=== PATIENT | female | born 1980 | race Two or more races ===

== ENCOUNTER → 2024-07-28 | Outpatient (BNVA) | payer MEDICAID, SELFPAY | END | disposition home or self-care (01) | PROVIDERS: PCP Nurse Practitioner Family; Referring Provider Nurse Practitioner Family; Visit Provider Urology | DX: N35.92 Unspecified urethral stricture, female (principal); D41.4 Neoplasm of uncertain behavior of bladder; E11.9 Type 2 diabetes mellitus without complications; Z79.4 Long term (current) use of insulin; C64.1 Malignant neoplasm of right kidney, except renal pelvis; Z87.440 Personal history of urinary (tract) infections | CPT/HCPCS: 52214; 81003; 96372; 99212; A4217; A4649; C1894; J3260; A9270; G0463 ==

== ENCOUNTER → 2024-08-28 | Outpatient (CLI) | payer MEDICAID, SELFPAY ==
--- NOTE | 2024-08-28 12:30 | XR_ITS ---
Examination: CT abdomen with intravenous contrast CT pelvis with intravenous contrast 2-D coronal reconstructions 2-D sagittal reconstructions Date and time of exam:August 28, 2024 1335 hours Comparison March 05, 2023 INDICATIONS: Diagnosis malignant neoplasm right kidney 2016 restaging CTDI: vol (mGy) 12.4 DLP: (mGycm) 623 Technique: Multiple axial sections of the abdomen and pelvis have been obtained. 64 slice high-resolution scanner used. 3 mm axial sections have been obtained, post intravenous injection 60 cc [id number] 2-D sagittal, coronal reconstructions obtained. Low dose protocols were performed. One or more of the following dose reduction techniques were used; automated exposure control, adjustment of the mA and/or KV according to patient size, use of iterative reconstruction technique. Findings: No focal liver or splenic lesions Absent gallbladder No pancreatic mass 12 mm indeterminate left adrenal nodule, stable compared with March 05, 2023 Partial right nephrectomy No solid enhancing renal mass lesion No abdominal or pelvic lymphadenopathy Aorta normal size Normal appendix Anteverted uterus No adnexal mass No bladder mass or bladder calculi The osseous structures are demineralized IMPRESSION: No interval metastatic disease or recurrent renal tumor
== END | disposition home or self-care (01) ==
PROVIDERS: PCP Urology; Referring Provider Urology; Visit Provider Urology
DX: C64.1 Malignant neoplasm of right kidney, except renal pelvis (principal); N39.0 Urinary tract infection, site not specified
CPT/HCPCS: 74177; A4649; Q9967

== ENCOUNTER → 2024-11-06 | Outpatient (BNVA) | payer MEDICAID, SELFPAY | END | disposition home or self-care (01) | PROVIDERS: PCP Nurse Practitioner Family; Referring Provider Nurse Practitioner Family; Visit Provider Urology | DX: Z53.8 Procedure and treatment not carried out for other reasons (principal); E11.9 Type 2 diabetes mellitus without complications | CPT/HCPCS: 99212; G0463 ==

== ENCOUNTER → 2025-01-16 | Outpatient (BNVA) | payer MEDICAID, SELFPAY | END | disposition home or self-care (01) | PROVIDERS: PCP Nurse Practitioner Family; Referring Provider Nurse Practitioner Family; Visit Provider Urology | DX: N39.0 Urinary tract infection, site not specified (principal); Z85.528 Personal history of other malignant neoplasm of kidney; Z90.5 Acquired absence of kidney; E11.9 Type 2 diabetes mellitus without complications; E66.9 Obesity, unspecified; Z68.29 Body mass index [BMI] 29.0-29.9, adult | CPT/HCPCS: 81003; 99212; G0463 ==

== ENCOUNTER → 2025-03-20 | Outpatient (CLI) | payer MEDICAID, SELFPAY ==
--- NOTE | 2025-03-20 11:00 | XR_ITS ---
Examination: CT abdomen with intravenous contrast CT pelvis with intravenous contrast 2-D coronal reconstructions 2-D sagittal reconstructions Date and time of exam:March 20, 2025 1121 hours Comparison August 28, 2024 INDICATIONS: History malignant neoplasm right kidney 2016, post partial right nephrectomy restaging. CTDI: vol (mGy) 13.9 DLP: (mGycm) 710 Technique: Multiple axial sections of the abdomen and pelvis have been obtained. 64 slice high-resolution scanner used. 3 mm axial sections have been obtained, post intravenous injection 60 cc [id number] 2-D sagittal, coronal reconstructions obtained. Low dose protocols were performed. One or more of the following dose reduction techniques were used; automated exposure control, adjustment of the mA and/or KV according to patient size, use of iterative reconstruction technique. Findings: No focal liver or splenic lesions Absent gallbladder No pancreatic mass Stable 12 mm left adrenal nodule Partial right nephrectomy No enhancing renal mass lesion No interval abdominal or pelvic lymphadenopathy Normal appendix Prominent vessels along the lateral margin of the uterus Bladder intact IMPRESSION: Stable 12 mm left adrenal nodule No interval metastatic disease
== END | disposition home or self-care (01) ==
PROVIDERS: Referring Provider Urology; Visit Provider Urology
DX: E27.8 Other specified disorders of adrenal gland (principal); C64.1 Malignant neoplasm of right kidney, except renal pelvis
CPT/HCPCS: 74177; A4649; Q9967